=== PATIENT | male | born 1995 | race American Indian/Alaskan Native ===

== ENCOUNTER 2023-09-03 21:23 | Emergency (ER) | payer SELFPAY ==
[~2023-09-03] VITALS: Ht 182.9 cm; Wt 118.2 kg
[~2023-09-03 21:23] MED LIST: No Historical Meds
[2023-09-04] MEDS: CEPHALEXIN 500 MG CAP PO ONE (00:11)
[2023-09-04] MEDS: BOOSTRIX VACCINE (TETANUS/DIPHTH/ACEL. PERTUSSIS) 0.5ML SYR IM ONE (00:13)
[2023-09-04] MEDS: LIDOCAINE 1% MDV 20ML VIAL SC ONE (00:16)
[2023-09-04] MEDS ORDERED: CEPH500C PO (00:35)
[2023-09-04 00:40] VITALS: BP 144/78; TEMP 97.8; O2SAT 99
== END 2023-09-04 00:45 | disposition home or self-care (01) ==
LOC: M ED 21:23
DX: S61.222A Laceration with foreign body of right middle finger without damage to nail, initial encounter (principal); S61.212A Laceration without foreign body of right middle finger without damage to nail, initial encounter; W18.02XA Striking against glass with subsequent fall, initial encounter; F10.10 Alcohol abuse, uncomplicated; F12.10 Cannabis abuse, uncomplicated; Y92.009 Unspecified place in unspecified non-institutional (private) residence as the place of occurrence of the external cause; Y93.89 Activity, other specified; Y99.9 Unspecified external cause status; Z79.2 Long term (current) use of antibiotics; Z23 Encounter for immunization